=== PATIENT | female | born 1995 | race Caucasian/White ===

== ENCOUNTER 2017-10-21 17:40 | Emergency (ER) | payer OTHER ==
[2017-10-21 18:24] VITALS: BP 121/67
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
--- NOTE | 2017-10-22 07:33 | RAD ---
INDICATION: Left knee buckling and instability . TECHNIQUE: 4 views of the left knee were obtained. FINDINGS: The distal portion of intramedullary rachell is seen in the distal femur transfixed distally with 2 surgical screws. The surgical hardware appears intact. The bones are in normal alignment. No joint effusion or fracture is seen. Joint spaces appear maintained. IMPRESSION: POSTSURGICAL CHANGES, NO EVIDENCE FOR ACUTE FINDING.
--- NOTE | 2017-10-22 07:37 | RAD ---
INDICATION: Left knee buckling, instability. TECHNIQUE: 2 views of the left femur were obtained. FINDINGS: There is an intramedullary rachell spanning the femur stabilizing an old healed fracture of the proximal diaphysis of the femur. The surgical hardware appears intact. The fracture appears healed. No new fracture or focal osseous abnormality is seen. Joint spaces in the hip and knee appear maintained. IMPRESSION: POSTTRAUMATIC AND POSTSURGICAL CHANGES, NO EVIDENCE FOR ACUTE FINDING. R0
--- NOTE | 2017-10-22 14:23 | UC ---
- Progress Note Progress Note: NO ACUTE INJURY SEEN ON XRAY PER OFFICIAL RADIOLOGY REPORT. NO CHANGE IN MANAGEMENT. PT REFERRED TO ORTHO. - STEPH BAY MD. Discharge - Sign-Out/Discharge Documenting (check all that apply): Post-Discharge Follow Up All imaging exams completed and their final reports reviewed: Yes - Discharge Plan Condition: Stable Disposition: HOME Patient Education Materials: Knee Immobilizer (ED), Meniscus Tear (ED) Forms: *Work Release Referrals: Vinay Chilel MD [Medical Doctor] - As Soon As Possible Additional Instructions: rest elevate ice ibuprofen you may have injured your cartilage the offical xr result is pending - Billing Disposition and Condition Condition: STABLE Disposition: Home
== END 2017-10-21 20:29 | disposition home or self-care (01) ==
LOC: UCCORT 17:40
DX: M25.562 Pain in left knee (principal); Z88.4 Allergy status to anesthetic agent; F17.210 Nicotine dependence, cigarettes, uncomplicated
CPT/HCPCS: 99212; G0463

== ENCOUNTER → 2017-12-15 12:41 | Day surgery (SDC) | payer OTHER ==
[~2017-12-15 12:41] MED LIST: Buffered Lidocaine 0.9% SYRIN* 5 ML/SYR SYRINGE INTRADERM ONE; Dexamethasone TAB* 4 MG ONE; Dexamethasone TAB* 4 MG PO ONE; DiMENhydriNATE IV* 50 MG/ML VIAL IV PUSH PRN; Famotidine IV* 10 MG/ML 2 ML (20 mg) IV ONE; Famotidine IV* 10 MG/ML 2 ML (20 mg) ONE; KETAMINE HCL* 50 MG/ML 10 ML VIAL ONE; Ketorolac INJ* 30 MG/ML 1 ML VIAL ONE; Lidocain 1% EPI 1:100,000 * 30 ML MDV ONE; Lidocaine 2% PF * 5 ML VIAL ONE; Midazolam* 1 MG/ML 5 ML VIAL (5 MG) ONE; Morphine VIAL* 4 MG/ML VIAL (1 ml vial) IV PRN; Naloxone* 0.4 MG/ML 1 ML VIAL IV PRN; Ondansetron ODT TAB* 4 MG ONE; Ondansetron TAB* 4 MG PO ONE; PROCHLORPERAZINE INJ 5 MG/ML 2 ML VIAL IV PRN; PROCHLORPERAZINE INJ 5 MG/ML 2 ML VIAL ONE; Propofol* 10 MG/ML 20 ML BTL IV PUSH ONE; Ropivacaine* 2 MG/ML 20 ML VIAL (0.2%) ONE; Scopolamine 1.5 mg* PATCH TRANSDERM PRN; Scopolamine PATCH Remove* 1 NOTE MISC PATCH OFF ONE; ceFAZolin 2 GM PREMIX in ORs 2 GM/50 ML BAG IVPB ONE; fentaNYL* 50 MCG/ML 2 ML VIAL (100 MCG VIAL) IV PRN; fentaNYL* 50 MCG/ML 2 ML VIAL (100 MCG VIAL) ONE; oxyCODONE/Acetamin 5/325 MG* TAB ONE; oxyCODONE/Acetamin 5/325 MG* TAB PO PRN
[2017-12-15 16:43] VITALS: BP 103/60
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
== END | disposition home or self-care (01) ==
LOC: OR 12:41
PROVIDERS: ATTEND Orthopaedic Surgery
DX: M23.42 Loose body in knee, left knee (principal); M23.92 Unspecified internal derangement of left knee; M65.862 Other synovitis and tenosynovitis, left lower leg; Z72.0 Tobacco use
CPT/HCPCS: 81025; A9270-GY; J0690; J0780; J1885; J2250; J2704; J2795; J3010; J8540

== ENCOUNTER 2018-11-05 09:04 | Emergency (ER) | payer OTHER ==
[2018-11-05 09:18] VITALS: BP 133/87
--- NOTE | 2018-11-05 09:53 | UC ---
Respiratory Complaint HPI - HPI Summary HPI Summary: 23 year old female, + smoker with complaint of sinus pressure and congestion with sore throat and cough for the past 3-4 days. Denies associated fever nor chills. No chest pain nor sob. Denies LMP started one week ago. - History of Current Complaint Chief Complaint: UCGeneralIllness Stated Complaint: SORE THROAT CONGESTION Time Seen by Provider: 11/05/18 09:51 Hx Last Menstrual Period: 11/04/18 Onset/Duration: Sudden Onset, Lasting Days Severity Currently: Moderate Pain Intensity: 0 Character: Cough: Productive Aggravating Factors: Nothing Associated Signs And Symptoms: Positive: Sinus Discomfort. Negative: Fever, Chills, Pleuritic Chest Pain, Wheezing, Hemoptysis, Dizziness, Calf Pain, Calf Swelling - Allergies/Home Medications Allergies/Adverse Reactions: Allergies Allergy/AdvReac Type Severity Reaction Status Date / Time tramadol Allergy Intermediate Swelling Verified 11/05/18 09:17 Of Face,Lips,& Throat PMH/Surg Hx/FS Hx/Imm Hx Previously Healthy: Yes - Surgical History Surgical History: Yes Surgery Procedure, Year, and Place: , 09/2010, [facility]. Bayron, screws, & plate to right leg. Bayron left femur. Pins & wires to left elbow - Family History Known Family History: Positive: Unknown, Hypertension - Social History Alcohol Use: Occasionally Substance Use Type: None Smoking Status (MU): Heavy Every Day Tobacco Smoker Type: Cigarettes Amount Used/How Often: 1/2 -1 pack per day Have You Smoked in the Last Year: Yes Household Exposure Type: Cigarettes - Immunization History Vaccination Up to Date: Yes Review of Systems All Other Systems Reviewed And Are Negative: Yes Constitutional: Positive: Fatigue. Negative: Fever, Chills Skin: Negative: Rash, Bruising Eyes: Negative: Blurred Vision, Diplopia, Drainage, Photophobia ENT: Positive: Sore Throat, Nasal Discharge, Sinus Congestion, Sinus Pain/ Tenderness. Negative: Epistaxis, Ear Ache Respiratory: Positive: Cough. Negative: Shortness Of Breath Cardiovascular: Positive: Chest Pain. Negative: Palpitations Gastrointestinal: Negative: Vomiting, Diarrhea, Nausea Genitourinary: Positive: Negative Motor: Positive: Negative Neurovascular: Positive: Negative Musculoskeletal: Positive: Negative Neurological: Positive: Negative Psychological: Positive: Negative Is Patient Immunocompromised?: No Physical Exam Triage Information Reviewed: Yes Appearance: Well-Appearing, No Pain Distress Vital Signs: Initial Vital Signs Temp 99.1 F 11/05/18 09:15 Pulse 90 11/05/18 09:15 Resp 18 11/05/18 09:15 BP 133/87 11/05/18 09:15 Pulse Ox 100 11/05/18 09:15 Vital Signs Reviewed: Yes Eyes: Positive: Conjunctiva Clear ENT: Positive: Pharynx normal, Nasal congestion, TMs normal, Sinus tenderness Neck: Positive: Supple, Nontender, No Lymphadenopathy Respiratory: Positive: Chest non-tender, Lungs clear, Normal breath sounds Cardiovascular: Positive: RRR, No Murmur Abdomen Description: Positive: Nontender, Soft Musculoskeletal: Positive: Strength Intact, ROM Intact Neurological: Positive: Muscle Tone Normal Skin Exam: Normal Respiratory Course/Dx - Differential Dx/Diagnosis Differential Diagnosis/HQI/PQRI: Bronchitis Provider Diagnosis: Acute sinusitis Discharge ED - Sign-Out/Discharge Documenting (check all that apply): Patient Departure All imaging exams completed and their final reports reviewed: No Studies - Discharge Plan Condition: Stable Disposition: HOME Prescriptions: Amoxicillin/Clavulanate TAB* [Augmentin TAB 875*] 875 mg PO BID 10 Days #20 tab Patient Education Materials: Sinusitis (ED) Referrals: Luzmaria Donald NP [Primary Care Provider] - Additional Instructions: Drink plenty of fluids, take antibiotics as prescribed. Tylenol or ibuprofen over the counter as needed for pain/headache. Follow-up if symptoms persist or worsen. Smoking cessation is strongly recommended. - Billing Disposition and Condition Condition: STABLE Disposition: Home
== END 2018-11-05 10:13 | disposition home or self-care (01) ==
LOC: UCCORT 09:04
DX: J01.90 Acute sinusitis, unspecified (principal); F17.210 Nicotine dependence, cigarettes, uncomplicated
CPT/HCPCS: 99212; G0463

== ENCOUNTER 2019-04-16 19:19 | Emergency (ER) | payer OTHER ==
[2019-04-16 19:33] VITALS: BP 121/65
--- NOTE | 2019-04-16 19:45 | UC ---
FLU HPI - HPI Summary HPI Summary: Cough for 2 days, headaches and body aches. Housemate has flu - History of Current Complaint Chief Complaint: UCRespiratory Stated Complaint: CONGESTION, COUGH Time Seen by Provider: 04/16/19 19:31 Hx Obtained From: Patient Hx Last Menstrual Period: 03/27/19 ?: No Onset/Duration: Sudden Onset, Lasting Days Severity Currently: Mild Severity Initially: Moderate Pain Intensity: 4 Associated Signs & Symptoms: Positive: Fever, Myalgia, Cough, Sore Throat - Allergy/Home Medications Allergies/Adverse Reactions: Allergies Allergy/AdvReac Type Severity Reaction Status Date / Time tramadol Allergy Intermediate Swelling Verified 04/16/19 19:34 Of Face,Lips,& Throat Home Medications: Home Medications Etonogestrel [Nexplanon] 1 implant INTRADERM ONCE 12/07/17 [History Confirmed ] Amoxicillin PO (*) [Amoxicillin 500 MG CAP*] 500 mg PO Q12H #19 cap 04/16/19 [Rx ] PMH/Surg Hx/FS Hx/Imm Hx Previously Healthy: Yes - Surgical History Surgical History: Yes Surgery Procedure, Year, and Place: , 09/2010, [facility]. Bayron, screws, & plate to right leg. Bayron left femur. Pins & wires to left elbow - Family History Known Family History: Positive: Hypertension - Social History Alcohol Use: Occasionally Substance Use Type: None Smoking Status (MU): Heavy Every Day Tobacco Smoker Type: Cigarettes Amount Used/How Often: 1/2 -1 pack per day Have You Smoked in the Last Year: Yes Household Exposure Type: Cigarettes - Immunization History Vaccination Up to Date: Yes Review of Systems All Other Systems Reviewed And Are Negative: Yes Constitutional: Positive: Fever ENT: Positive: Sore Throat Respiratory: Positive: Cough Musculoskeletal: Positive: Myalgia Neurological/Mental Status: Positive: Headache Is Patient Immunocompromised?: No Physical Exam Triage Information Reviewed: Yes Appearance: Well-Nourished, Ill-Appearing, Pain Distress Vital Signs: Initial Vital Signs Temp 99.4 F 04/16/19 19:29 Pulse 110 04/16/19 19:29 Resp 20 04/16/19 19:29 BP 121/65 04/16/19 19:29 Pulse Ox 100 04/16/19 19:29 Vital Signs Reviewed: Yes Eye Exam: Normal ENT: Positive: Pharyngeal erythema, TM bulging, TM red, Tonsillar swelling, Tonsillar exudate Dental Exam: Normal Neck exam: Normal Respiratory Exam: Normal Respiratory: Positive: Chest non-tender, Lungs clear, Normal breath sounds Cardiovascular Exam: Normal Cardiovascular: Positive: RRR, No Murmur, Pulses Normal Abdominal Exam: Normal Abdomen Description: Positive: Nontender, No Organomegaly, Soft Bowel Sounds: Positive: Present Musculoskeletal Exam: Normal Neurological Exam: Normal Psychological Exam: Normal Skin Exam: Normal Flu Course/Dx - Course Course Of Treatment: hx obtained, exam performed ,meds reviewed, rapid flu obtained - Differential Dx/Diagnosis Differential Diagnosis/HQI/PQRI: Influenza Provider Diagnosis: Pharyngitis Discharge ED - Sign-Out/Discharge Documenting (check all that apply): Patient Departure All imaging exams completed and their final reports reviewed: No Studies - Discharge Plan Condition: Stable Disposition: HOME Patient Education Materials: Pharyngitis (ED) Forms: *Work Release Referrals: Luzmaria Donald NP [Primary Care Provider] - - Billing Disposition and Condition Condition: STABLE Disposition: Home
[2019-04-16 19:55] LABS: Influenza A Molecular Negative (Negative); Influenza B Molecular Negative (Negative)
[2019-04-16] MEDS ORDERED: Amoxicillin PO (*) 500 MG CAP PO ONE (20:04)
== END 2019-04-16 20:12 | disposition home or self-care (01) ==
LOC: UCCORT 19:19
DX: J02.9 Acute pharyngitis, unspecified (principal); F17.210 Nicotine dependence, cigarettes, uncomplicated; M79.10 Myalgia, unspecified site; R05 Cough; Z88.5 Allergy status to narcotic agent
CPT/HCPCS: 99212; A9270-GY; G0463

== ENCOUNTER 2019-05-16 18:06 | Emergency (ER) | payer OTHER ==
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
[2019-05-16 19:37] LABS: Influenza A Molecular Negative (Negative); Influenza B Molecular Negative (Negative)
== END 2019-05-16 19:49 | disposition home or self-care (01) ==
LOC: UCCORT 18:06
DX: B34.9 Viral infection, unspecified (principal); Z20.828 Contact with and (suspected) exposure to other viral communicable diseases; F17.210 Nicotine dependence, cigarettes, uncomplicated
CPT/HCPCS: 87635; 99211; G0463; G2023